=== PATIENT | female | born 1990 | race Caucasian/White ===

== ENCOUNTER 2021-11-01 08:18 | Emergency (ER) | payer SELFPAY ==
[~2021-11-01] VITALS: Ht 167 cm; Wt 74.0 kg
--- NOTE | 2021-11-01 08:55 | ED GU-Female ---
General Chief Complaint: OB < 20 WEEKS Stated Complaint: VAGINAL BLEEDING 5 WEEKS PREG Nursing Triage Note: PT CO OF VAGINAL BLEEDING STARTED THIS AM BRIGHT RED BLOOD W CLOTS. PT STATES IS 5 WEEKS . PT DENIES CRAMPING. PT STATES HAD SEX LAST PM. LMP Sep Source: patient Exam Limitations: no limitations History of Present Illness Date Seen by Provider: Nov 01, 2021 Time Seen by Provider: 08:23 Initial Comments Patient to ER by private conveyance from home chief complaint she started having some bleeding while urinating pink tinge urine in the toilet bowl without large blood clots this morning. Patient had intercourse last night. Last menstrual period was 09/30/2021 putting her at 4 weeks and 4 days with a positive test October 21. 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 No past medical or surgical history. G1. Periods are typically regular every 4 weeks. Allergies and Home Medications Patient Home Medication List Home Medication List Reviewed: Yes Nitrofurantoin Monohyd/M-Cryst (Macrobid 100 mg Capsule) 100 Mg Capsule, 1 TAB PO BID Prescribed by: MENA JACKSON on 11/01/21 1431 Review of Systems Review of Systems Constitutional: No chills, No diaphoresis EENTM: No ear discharge, No ear pain Respiratory: No cough, No short of breath Cardiovascular: No chest pain, No edema Gastrointestinal: No abdominal pain, No nausea, No vomiting Genitourinary: denies discharge, denies dysuria Musculoskeletal: No back pain, No joint pain All Other Systemes Reviewed Negative Unless Noted: Yes Past Jgnmhzq-Hnudph-Dfyynn Hx Patient Social History Tobacco Use?: No Substance use?: No Alcohol Use?: No Pt feels they are or have been: No Past Medical History Last Menstrual Period: Sep 30, 2021 Physical Exam Vital Signs Vital Signs - First Documented 11/01/21 08:24 Temp 36.3 Pulse 109 Resp 18 B/P (MAP) 148/88 (108) Pulse Ox 100 Capillary Refill : Less Than 3 Seconds Height, Weight, BMI Height: '" Weight: lbs. oz. kg; 26.00 BMI Method: General Appearance: WD/WN, no apparent distress HEENT: PERRL/EOMI, pharynx normal Neck: full range of motion, supple, normal inspection Cardiovascular: normal peripheral pulses, regular rate, rhythm Respiratory: lungs clear, normal breath sounds, no respiratory distress, no accessory muscle use Gastrointestinal: normal bowel sounds, non tender, soft Extremities: normal range of motion, normal capillary refill Neurologic/Psychiatric: alert, normal mood/affect, oriented x 3 Skin: normal color, warm/dry Progress/Results/Core Measures Suspected Sepsis SIRS Temperature: Pulse: 109 Respiratory Rate: 18 Laboratory Tests 11/01/21 09:25: White Blood Count 5.8 Blood Pressure 148 /88 Mean: 108 Laboratory Tests 11/01/21 09:25: Platelet Count 293 Results/Orders Lab Results Laboratory Tests Test 11/01/21 08:52 11/01/21 09:25 Range/Units Urine Color RED H Urine Clarity CLEAR Urine pH 7.5 5-9 Urine Specific [place] 1.010 L 1.016-1.022 Urine Protein TRACE H NEGATIVE Urine Glucose (UA) NEGATIVE NEGATIVE Urine Ketones NEGATIVE NEGATIVE Urine Nitrite NEGATIVE NEGATIVE Urine Bilirubin NEGATIVE NEGATIVE Urine Urobilinogen 0.2 < = 1.0 MG/DL Urine Leukocyte Esterase 1+ H NEGATIVE Urine RBC (Auto) 3+ H NEGATIVE Urine RBC >100 H /HPF Urine WBC 5-10 H /HPF Urine Squamous Epithelial Cells 5-10 /HPF Urine Crystals NONE /LPF Urine Bacteria TRACE /HPF Urine Casts NONE /LPF Urine Mucus NEGATIVE /LPF Urine Culture Indicated YES White Blood Count 5.8 4.3-11.0 10^3/uL Red Blood Count 4.44 3.80-5.11 10^6/uL Hemoglobin 14.1 11.5-16.0 g/dL Hematocrit 42 35-52 % Mean Corpuscular Volume 94 80-99 fL Mean Corpuscular Hemoglobin 32 25-34 pg Mean Corpuscular Hemoglobin Concent 34 32-36 g/dL Red Cell Distribution Width 11.9 10.0-14.5 % Platelet Count 293 130-400 10^3/uL Mean Platelet Volume 8.9 L 9.0-12.2 fL Immature Granulocyte % (Auto) 0 % Neutrophils (%) (Auto) 77 H 42-75 % Lymphocytes (%) (Auto) 16 12-44 % Monocytes (%) (Auto) 6 0-12 % Eosinophils (%) (Auto) 1 0-10 % Basophils (%) (Auto) 0 0-10 % Neutrophils # (Auto) 4.5 1.8-7.8 10^3/uL Lymphocytes # (Auto) 0.9 L 1.0-4.0 10^3/uL Monocytes # (Auto) 0.4 0.0-1.0 10^3/uL Eosinophils # (Auto) 0.0 0.0-0.3 10^3/uL Basophils # (Auto) 0.0 0.0-0.1 10^3/uL Immature Granulocyte # (Auto) 0.0 0.0-0.1 10^3/uL My Orders Orders - MENA JACKSON Ua Culture If Indicated (11/01/21 08:34) Urine Bedside (11/01/21 08:34) Urine Culture (11/01/21 08:52) Abo Rh Type (11/01/21 09:21) Cbc With Automated Diff (11/01/21 09:21) Vital Signs/I&O 11/01/21 11/01/21 08:24 10:45 Temp 36.3 Pulse 109 88 Resp 18 18 B/P (MAP) 148/88 (108) 136/78 Pulse Ox 100 100 Capillary Refill : Less Than 3 Seconds Blood Pressure Mean: 108 Progress Note : Time: 10:40 Progress Note Urine test was positive on the ninth according the patient but today it is negative. She will be 4 weeks and 4 days according to her LMP. Likely she is had a miscarriage. Given her some expectant management. Her blood type is a positive. Will have her follow-up with her [employer] T[employer]ING MACHINE OPERATOR and encourage her after her next. She is okay to start trying again. Departure Impression Primary Impression: Incomplete miscarriage with blood clot Disposition: HOME, SELF-CARE Condition: Stable Departure-Patient Inst. Decision time for Depature: 10:40 Referrals: NO,LOCAL PHYSICIAN (PCP/Family) Primary Care Physician Patient Instructions: Miscarriage (DC) Add. Discharge Instructions: Tylenol and ibuprofen as well as heating pads as necessary for the cramping pain. Expect to have cramping similar to or little worse than typical menses. If you are passing large blood clots the palm your hand or filling a pad greater than every 15 minutes for several hours or if you begin to experience chest pain, shortness of or other worrisome symptoms then please return to the nearest ER for further evaluation. Otherwise you can follow-up with your R[employer] TURNING MACHINE OPERATOR with questions. A single miscarriage does not portend anything in terms of future difficulties with becoming . I suggest allowing a cycle to go by and after your next period then you may resume attempts at becoming as you would normally. Drink plenty of fluids. All discharge instructions reviewed with patient and/or family. Voiced understanding. Scripts Nitrofurantoin Monohyd/M-Cryst (Macrobid 100 mg Capsule) 100 Mg Capsule 1 TAB PO BID for 7 Days, #14 CAP 0 Refills Prov: MENA JACKSON 11/01/21 Work/School Note: Work Release Form Date Seen in the Emergency Department: Nov 01, 2021 Return to Work: Nov 05, 2021 Restrictions: No Restrictions MENA JACKSON Nov 01, 2021 08:55
[2021-11-01 09:00] LABS: BILIRUBIN,URINE NEGATIVE (NEGATIVE); CLARITY,URINE CLEAR; COLOR,URINE RED; GLUCOSE, URINE (UA) NEGATIVE (NEGATIVE); KETONES,URINE NEGATIVE (NEGATIVE); LEUKOCYTE ESTERASE ,URINE 1+ (NEGATIVE); NITRITE,URINE NEGATIVE (NEGATIVE); PH,URINE 7.5 (5-9); PROTEIN,URINE TRACE (NEGATIVE)
[2021-11-01 09:08] LABS: BACTERIA,URINE TRACE /HPF; RBC,URINE >100 /HPF
[2021-11-01 09:41] LABS: BASOPHILS % (AUTO) 0 % (0-10); EOSINOPHILS % (AUTO) 1 % (0-10); HEMATOCRIT 42 % (35-52); HEMOGLOBIN 14.1 g/dL (11.5-16.0); LYMPHOCYTES # (AUTO) 0.9 10^3/uL (1.0-4.0); LYMPHOCYTES % (AUTO) 16 % (12-44); MEAN CORPUSCULAR HEMOGLOBIN 32 pg (25-34); MEAN CORPUSCULAR HGB CONC 34 g/dL (32-36); MEAN CORPUSCULAR VOLUME 94 fL (80-99); MEAN PLATELET VOLUME 8.9 fL (9.0-12.2); MONOCYTES # (AUTO) 0.4 10^3/uL (0.0-1.0); MONOCYTES % (AUTO) 6 % (0-12); NEUTROPHILS # (AUTO) 4.5 10^3/uL (1.8-7.8); NEUTROPHILS % (AUTO) 77 % (42-75); PLATELET COUNT 293 10^3/uL (130-400); WHITE BLOOD COUNT 5.8 10^3/uL (4.3-11.0)
[2021-11-01 10:45] VITALS: BP 136/78
[2021-11-01] MEDS ORDERED: NITR-65 PO (14:31)
== END 2021-11-01 10:45 | disposition home or self-care (01) ==
LOC: EDUNIT# 08:18 → ER 08:22
DX: O03.4 Incomplete spontaneous abortion without complication (principal)
CPT/HCPCS: 36415; 81000; 84703; 85025; 86900; 86901; 87088